=== PATIENT | female | born 1965 | race Caucasian/White ===

== ENCOUNTER 2018-01-25 09:24 | Emergency (ER) | payer OTHER ==
[~2018-01-25] VITALS: Ht 157.5 cm; Wt 90.7 kg
[~2018-01-25 09:24] MED LIST: DOLOGESIC CAPSU1 CAP PO; MIRAPEX1 MG; PROVENTIL3 ML/2.5 M IH; ZANTAC300 MG PO; ZYNCOF 20-400120 ML PO
[2018-01-25] MEDS ORDERED: SINGULAIR10 MG (09:58)
== END 2018-01-25 12:18 | disposition home or self-care (01) ==
LOC: ER 09:24
DX: I87.2 Venous insufficiency (chronic) (peripheral) (principal); M79.661 Pain in right lower leg

== ENCOUNTER 2022-08-21 11:48 | Inpatient (IN) | payer OTHER ==
[~2022-08-21] VITALS: Ht 157.5 cm; Wt 90.7 kg
[~2022-08-21 11:48] MED LIST changes: +SINGULAIR10 MG
== END 2022-08-24 13:23 | disposition home or self-care (01) | DRG 392 ==
LOC: ER 11:48 → SURH 23:50 → SEC-K 23:50 → SURH 08-22 01:57
PROVIDERS: ADMIT Internal Medicine; ATTEND Internal Medicine
PROC: BW21YZZ Computerized Tomography (CT Scan) of Abdomen and Pelvis using Other Contrast (ICD-10-PCS; principal; 2022-08-21)
DX: K57.32 Diverticulitis of large intestine without perforation or abscess without bleeding (principal); R10.32 Left lower quadrant pain; G47.33 Obstructive sleep apnea (adult) (pediatric); G25.81 Restless legs syndrome; Z20.822 Contact with and (suspected) exposure to COVID-19

== ENCOUNTER 2024-07-26 08:08 | Emergency (ER) | payer OTHER ==
[~2024-07-26] VITALS: Ht 157.5 cm; Wt 89.4 kg
[2024-07-26 08:50] VITALS: BP 136/89; O2SAT 95
[2024-07-26] MEDS ORDERED: METHYLPREDNISOLONE SOD SUCC 125 MG VIAL ONE (11:56)
[2024-07-26] MEDS ORDERED: GUAIFEN/DEXTROMETHORPHAN/PE 10 ML BLIST.PACK PO ONE ×2 (11:56→12:00)
[2024-07-26] MEDS ORDERED: LEVALBUTEROL HCL 0.63 MG/3 ML SOLUTION IH SCH (12:00)
[2024-07-26] MEDS ORDERED: IPRATROPIUM BROMIDE 0.5 MG/2.5 ML AMPUL.NEB IH SCH (12:00)
[2024-07-26] MEDS ORDERED: METHYLPREDNISOLONE SOD SUCC 125 MG VIAL IV ONE (12:00)
[2024-07-26] MEDS ORDERED: IPRATROPIUM BROMIDE 0.5 MG/2.5 ML AMPUL.NEB IH ONE (12:11)
[2024-07-26] MEDS ORDERED: LEVALBUTEROL HCL 0.63 MG/3 ML SOLUTION IH ONE (12:11)
[2024-07-26 12:32] LABS: HEMATOCRIT 44.4 % (36.0-45.00); MEAN CELL VOLUME 88.7 fL (80.00-100.00); MEAN CORPUSCULAR HEMOGLOBIN 29.9 pg (27.00-32.0); MEAN CORPUSCULAR HGB CONC 33.7 g/dl (32.0-36.0); PLATELET COUNT 227 K/uL (150-450); RED BLOOD COUNT 5.01 M/uL (4.00-6.00); RED CELL DISTRIBUTION WIDTH 14.5 % (11.5-14.5)
[2024-07-26] MEDS ORDERED: MEDROLPACK PO (14:22)
[2024-07-26] MEDS ORDERED: ZITHROMAX500 MG PO (14:22)
== END 2024-07-26 17:09 | disposition home or self-care (01) ==
LOC: ER 08:10
PROVIDERS: General Practice
DX: J00 Acute nasopharyngitis [common cold] (principal); Z88.2 Allergy status to sulfonamides; K57.30 Diverticulosis of large intestine without perforation or abscess without bleeding; G25.81 Restless legs syndrome; Z87.442 Personal history of urinary calculi; Z20.822 Contact with and (suspected) exposure to COVID-19
CPT/HCPCS: 36415; 71046; 96365; 99283; J3490